=== PATIENT | female | born 1960 | race Caucasian/White ===

== ENCOUNTER 2023-07-10 12:32 | Emergency (ER) | payer BC, SELFPAY ==
[2023-07-10 12:34] VITALS: BP 144/86
[2023-07-10 12:39] LABS: Glucose - Point of Care 139 mg/dl (70-99)
--- NOTE | 2023-07-10 12:54 | ED.GENMED ---
History of Present Illness
General
Chief Complaint: Abdominal Symptoms
Source: patient and spouse
Time Seen by Provider: 07/10/23 12:41
Travel History
Have you had any contact with someone who has COVID-19?: No
Do you have any symptoms of coronavirus? Fever > 100 degrees, chills, cough, shortness of breath, sore throat, loss of taste or smell, muscle aches, or headache?: No
History of Present Illness
History of Present Illness:
63-year-old female with no significant past medical history presenting the emergency department for evaluation of persistent nausea and vomiting for the last 5 days, or treated for urinary tract infection with Macrobid this past Tuesday by the
primary care provider after she started experiencing cloudy urine, somewhat malodorous urine and urinary frequency. Patient does have a history of urinary tract infections in the past as well as a history of a kidney stone as well. Patient is
denying any pain, fevers although does admit to chills over the last 24 hours, chest pain, abdominal pain, vaginal bleeding or discharge. States she has had a difficult time tolerating the antibiotic due to the amount nausea and vomiting she has
been experiencing
Past History
Past History
ED Past Medical History: None
ED Past Surgical History: Orthopedic
Social History
Tobacco: Non-smoker
Alcohol: None
Drug: None
Personal:
Living: with family
Review of Systems
Review of Systems
All Other Systems: ROS reviewed and negative except as documented in HPI and ROS
Phy Exam
Physical Exam
Physical Exam:
GENERAL: Alert , somewhat pale, retching, appears uncomfortable
EYE: clear conjunctiva b/l
HEAD: NCAT
ENT: o/p clr, mmm.
CARDIAC: Borderline tachycardic rate and rhythm.
LUNGS: Clear breath sounds bilaterally, no acute respiratory distress, no wheezes/rales/rhonchi
ABDOMEN: Soft, without focal tenderness, no r/g, no cvat, negative Giang sign, no tenderness at McBurney's point
NEUROLOGICAL: Alert and oriented
SKIN: Warm and dry, skin intact.
MUSCULOSKELETAL: , well perfused.
PSYCH: Normal and appropriate interaction.
Scores
Heart Failure Risk
Heart Failure Risk Score: Not Applicable
Heart Score for Chest Pain Patients
STEMI patient?: Not applicable
Withdrawal Assessment of Alcohol
Withdrawal Assessment Completed?: Not applicable
Course
Orders/Labs/Results
Orders:
Orders
07/10/23 12:50
0.9% Sodium Chloride 1000 ml [Nss] 1,000 ml IV BOLUS
Ondansetron Injectable [Zofran] 4 mg IV NOW STA
07/10/23 12:51
CT Abd/pel Without Iv Or Oral Urgent
Comment:
Reason For Exam: UTI, vomiting, hx stones
07/10/23 13:08
Complete Blood Count/With Diff Urgent
Comprehensive Metabolic Panel Urgent
Lactic Acid Q4H
Comment: CANCEL 2nd LACTIC ACID IF 1st LACTIC ACID IS LESS THAN 2
Urinalysis Reflex To Culture Urgent
Date Specimen was Collected: 07/10/23
Time Specimen was Collected: 13:05
Urine Microscopic Reflex Cult Urgent
07/10/23 13:53
0.9% Sodium Chloride 1000 ml [Nss] 1,000 ml IV BOLUS
Abnormal Lab Results
07/10/23 07/10/23
12:37 13:08
WBC 12.7 H 10^3/uL
(4.8-10.8)
MCH 31.1 H pg
(27.0-31.0)
Abs Immat Gran (auto) 0.1 H 10^3/uL
(0-0.05)
Absolute Neuts (auto) 8.5 H 10^3/uL
(1.4-6.5)
Absolute Monos (auto) 0.7 H 10^3/uL
(0.1-0.6)
Immature Gran % 0.9 H %
(0-0.5)
Potassium 3.4 L mmol/L
(3.5-5.1)
Carbon Dioxide 20 L mmol/L
(22-30)
BUN 22 H mg/dl
(7-17)
Glucose 177 H mg/dl
(70-99)
Lactic Acid 3.0 H mmol/L
(0.7-2.0)
ALT 58 H U/L
(0-35)
Urine Ketones 1+ A
(Negative)
Ur Occult Blood Reflex 2+ A
(Negative)
Urine Bilirubin 1+ A
(Negative)
Urine Urobilinogen 3+ A
(Neg - 1+)
Leukocyte Esterase Rfl Trace A
(Negative)
Urine Bacteria (Reflex) Few A
(Negative)
Urine Albumin (Reflex) 1+ A
(Neg - Trace)
POC Glucose 139 H mg/dl
(70-99)
07/10/23 13:08
07/10/23 13:08
Vital Signs
Initial and Last Documented VS:
Initial Vital Signs
Temp Pulse Resp BP Pulse Ox
98.3 F 104 20 144/86 97
07/10/23 12:34 07/10/23 12:34 07/10/23 12:34 07/10/23 12:34 07/10/23 12:34
Last Documented Vital Signs
Temp Pulse Resp BP Pulse Ox
98.3 F 84 20 125/84 96
07/10/23 12:34 07/10/23 16:17 07/10/23 12:34 07/10/23 16:17 07/10/23 16:17
MDM/Problems Addressed
Differential Diagnosis Includes:
Cystitis, Pyelonephritis, nephrolithiasis, electrolyte disturbance
MDM/Problems Addressed:
3-year-old female presenting emergency department for evaluation of persistent nausea and vomiting over the last 5 days, currently being treated for urinary tract infection with Macrobid although notes difficult time tolerating the Macrobid due to
her nausea and vomit. She is not in any pain which would certainly not lend itself to either pyelonephritis or nephrolithiasis/ureterolithiasis however this is still on the differential. Will treat symptoms with Zofran and fluids. CT of the
abdomen and pelvis ordered. Lab work ordered. Reassessment following.
*Pulse Oximetry
Patient hypoxic: no
*Critical Care Note
Total Time (30-74mins, 75-104mins- exclusive of procedures): Not Applicable
Comment
Comment:
Patient's lab work reveals a leukocytosis but no leftward shift. I suspect this is likely reactive from her persistent vomiting. Lactic acid was also slightly elevated which is likely related to volume depletion and dehydration.
Patient Management
Escalation/DeEscalation of care consider admission/obs:
On multiple reevaluations patient reports again improvement. She was able to tolerate p.o. solids and liquids without. Patient feels comfortable being discharged home. Aware of return precautions emergency department but otherwise stable for
discharge.
ED Attending Note
-
Portions of this chart may have been created with voice recognition software.� Occasional wrong word or��sound alike� substitutions may have occurred due to the inherent limitations of voice recognition software.
Discharge Plan
Departure
Patient Disposition: Home (Routine Discharge)
Date of Disposition: 07/10/23
Time of Disposition: 16:11
Patient with high blood pressure during this ER visit?: Yes
Discharge Problem:
Nausea and vomiting
Instructions: Nausea and Vomiting, Adult (DC)
Prescriptions:
New
ondansetron 4 mg Tablet,Disintegrating
4 mg PO TIDPRN PRN (Reason: nausea/vomiting) Qty: 8 0RF
Referrals:
Geoff Blair MD [Family Provider] -
Interventions
Interventions:
*Risk Screen - Suicide Last Done: 07/10/23 14:47
*General Assessment Last Done: 07/10/23 14:47
*Neglect/Abuse Screening Last Done: 07/10/23 14:47
ED- Fall Risk Assessment Last Done: 07/10/23 14:47
*ED COVID-19 Vaccine History Last Done: 07/10/23 12:34
KG-Rkowms-Ljxakrczjw Assessment Last Done: 07/10/23 14:47
Discharge Date and Time
Print Language: WOLOF
[2023-07-10] MEDS: ZOFRAN 4 MG IV (13:08)
[2023-07-10] MEDS: NSS 1000 IV ×2 (13:09→14:15)
[2023-07-10 13:15] LABS: % Basophils 0.5 % (0-2); % Eosinophils 0.7 % (0-6); % Immature Granulocytes 0.9 % (0-0.5); % Lymphocytes 25.6 % (20.5-51.1); % Monocytes 5.7 % (1.7-9.3); % Neutrophils 66.6 % (42.2-75.2); Absolute Basophils 0.1 10^3/uL (0-0.2); Absolute Eosinophils 0.1 10^3/uL (0-0.7); Absolute Immature Granulocytes 0.1 10^3/uL (0-0.05); Absolute Lymphocytes 3.3 10^3/uL (1.2-3.4); Absolute Monocytes 0.7 10^3/uL (0.1-0.6); Absolute Neutrophils 8.5 10^3/uL (1.4-6.5); Hematocrit 41.7 % (37.0-47.0); Mean Corpuscular Hgb 31.1 pg (27.0-31.0); Mean Corpuscular Volume 86.5 fL (81.0-99.0); Mean Platelet Volume 9.2 fL (7.4-10.4); Nucleated Red Blood Cells % 0 %; Platelet Count 338 10^3/uL (130-400); Red Blood Cell Count 4.82 10^6/uL (4.20-5.40); White Blood Cell Count 12.7 10^3/uL (4.8-10.8)
[2023-07-10 13:17] LABS: Urine Albumin 1+ (Neg - Trace); Urine Bilirubin 1+ (Negative); Urine Character Slightly Cloudy (Clear); Urine Color Yellow; Urine Glucose Negative (Negative); Urine Ketone 1+ (Negative); Urine Leukocyte Trace (Negative); Urine Nitrite Negative (Negative); Urine Occult Blood 2+ (Negative); Urine Urobilinogen 3+ (Neg - 1+)
[2023-07-10 13:26] LABS: Urine Mucus Few
[2023-07-10 13:27] LABS: Urine Amorphous Seen
[2023-07-10 13:28] LABS: Urine Red Blood Cell 0-2 /HPF (0-2); Urine White Cell 0-2 /HPF (0-5)
[2023-07-10 13:29] LABS: Urine Bacteria Few (Negative)
[2023-07-10 13:43] LABS: ALT (SGPT) 58 U/L (0-35); AST (SGOT) 33 U/L (14-36); Albumin 4.8 g/dl (3.5-5.0); Alkaline Phosphatase 96 U/L (38-126); Blood Urea Nitrogen 22 mg/dl (7-17); Calcium 9.9 mg/dl (8.4-10.2); Carbon Dioxide 20 mmol/L (22-30); Chloride 102 mmol/L (98-107); Glucose 177 mg/dl (70-99); Potassium 3.4 mmol/L (3.5-5.1); Sodium 136 mmol/L (135-145); Total Bilirubin 1.3 mg/dl (0.2-1.3); Total Protein 7.7 g/dl (6.3-8.2); eGFR > 60.00
[2023-07-10 16:17] VITALS: BP 125/84
== END 2023-07-10 16:45 | disposition home or self-care (01) ==
LOC: EMR 12:32
PROVIDERS: Physician Assistant Medical; EMERGENCY PHYSICIAN Emergency Medicine; FAMILY PHYSICIAN Family Medicine
DX: R11.2 Nausea with vomiting, unspecified (principal); R68.83 Chills (without fever); R07.9 Chest pain, unspecified; R10.9 Unspecified abdominal pain; R03.0 Elevated blood-pressure reading, without diagnosis of hypertension; Z87.442 Personal history of urinary calculi
CPT/HCPCS: 99284; 96374; 96361 ×2; 74176; 80053; 81003; 81015; 82962; 83605; 85025